=== PATIENT | female | born 1960 | race Caucasian/White ===

== ENCOUNTER → 2016-09-10 | Outpatient (CLI) | payer OTHER ==
[~2016-09-10] MED LIST: ATOR20TA15 PO; ATOR40TA16 PO; BENA25TA3 PO; FOSA70TA PO; MOTR200T4 PO; MULTTAB67 PO; PHEN1LIQ60; VENTAER INH; ZITHTAB PO; ZOFR4TAB PO
[2016-09-10 08:58] LABS: AUTOMATED NEUTROPHIL # 2.8 TH/MM3 (1.8-7.7); BASOPHIL # 0.1 TH/MM3 (0-0.2); BASOPHIL % 1.2 % (0.0-2.0); EOSINOPHIL # 0.2 TH/MM3 (0-0.4); EOSINOPHIL % 3.9 % (0.0-4.0); HEMATOCRIT 42.2 % (35.0-46.0); HEMO FLAGS DIFF FINAL; LYMPH % 33.6 % (9.0-44.0); LYMPHOCYTE # 1.8 TH/MM3 (1.0-4.8); MEAN CELL VOLUME 92.3 FL (80.0-100.0); MEAN CORPUSCULAR HGB CONC 32.5 % (32.0-36.0); MONO % 6.7 % (0.0-8.0); NEUT % 54.6 % (16.0-70.0); PLATELET COUNT 260 TH/MM3 (150-450); RED BLOOD COUNT 4.57 MIL/MM3 (4.00-5.30); RED CELL DISTRIBUTION WIDTH 11.9 % (11.6-17.2); WHITE BLOOD COUNT 5.3 TH/MM3 (4.0-11.0)
[2016-09-10 13:45] LABS: BLOOD, URINE NEG (NEG); GLUCOSE,URINE NEG (NEG); KETONE, URINE NEG (NEG); NITRITE,URINE NEG (NEG); SQUAMOUS EPITHELIAL CELL URINE <1 /hpf (0-5); URINE COLOR COLORLESS (YELLW/STRAW)
[2016-09-10 13:48] LABS: COMMENT (UR) CULT NOT INDICATED; CULTURE IF INDICATED CULT NOT INDICATED
[2016-09-10 14:02] LABS: ALKALINE PHOSPHATASE 85 U/L (45-117); ALT (GPT) 17 U/L (10-53); ANION GAP 7 MEQ/L (5-15); AST (GOT) 12 U/L (15-37); BICARBONATE 28.7 MEQ/L (21.0-32.0); BLOOD UREA NITROGEN 21 MG/DL (7-18); CHLORIDE 104 MEQ/L (98-107); FREE T4 0.98 NG/DL (0.76-1.46); GLOMERULAR FILTRATION RATE 82 ML/MIN (>89); GLUCOSE,FASTING 99 MG/DL (74-99); HDL CHOLESTEROL 61.4 MG/DL (40.0-60.0); LDL CHOLESTEROL 191 MG/DL (0-99); SODIUM (NA) 140 MEQ/L (136-145); TOTAL BILIRUBIN ADULT 0.3 MG/DL (0.2-1.0)
[2016-09-10 17:27] LABS: HEMOGLOBIN A1a 1.1 %; HEMOGLOBIN A1b 0.8 %; HEMOGLOBIN Ao 84.7 %; HEMOGLOBIN F 1.1 %; HEMOGLOBIN P3 3.9 %
== END ==
LOC: OLAB 08:12
PROVIDERS: ATTEND Nurse Practitioner Family
DX: J40 Bronchitis, not specified as acute or chronic (principal); E78.5 Hyperlipidemia, unspecified; E55.9 Vitamin D deficiency, unspecified; R11.0 Nausea; R53.83 Other fatigue
CPT/HCPCS: 80053; 80061; 81001; 82306; 83036; 84439; 84443; 84480; 85025

== ENCOUNTER → 2016-10-15 | Outpatient (CLI) | payer OTHER ==
[~2016-10-15] VITALS: Ht 158.8 cm; Wt 61.7 kg
[~2016-10-15] MED LIST changes: -ATOR40TA16 PO; +CHLORHEXIDINE GLUCONATE 2 % 1 PACK (2 CLOTHS) TOPICAL PRN; +INSULIN HUMAN REGULAR 1,000 UNITS/10 ML VIAL SQ PRN; +LACTATED RINGER'S 1000 ML IV PRN; +METOPROLOL TARTRATE 25 MG TAB PO PRN; -PHEN1LIQ60; +POVIDONE IODINE 5% (ANTISEPSIS KIT) 4 APPLICATIONS EACH NARE PRN; +PROPOFOL 200 MG/20 ML AMP IV ONE; +SODIUM CHLORID 0.9% 500 ML IV PRN; -ZITHTAB PO
[2016-10-15 13:38] VITALS: BP 106/60; PULSE 74; RESP 20; TEMP 98.4; O2SAT 96
--- NOTE | 2016-10-15 14:40 | EKG ---
Date Performed: 10/15/2016 Time Performed: 13:21:50 PTAGE: 55 years EKG: Sinus rhythm NONSPECIFIC T-WAVE ABNORMALITY BORDERLINE ECG PREVIOUS TRACING : 11/22/2013 08.58 Compared to prior tracing no significant change DOCTOR: Luis Jean Interpretating Date/Time 10/15/2016 14:39:04
[2016-10-15 14:43] VITALS: TEMP 97.5
--- NOTE | 2016-10-15 14:51 | GIPROC ---
[facility] [address] [facility]. [facility], [address] EGD PROCEDURE REPORT EXAM DATE: 10/15/2016 PATIENT NAME: Sherine Carey MR #: [id number] BIRTHDATE: 1960 ATTENDING: Perez Donis MD ORDER #: [id number] PICTURE FRAMES INSPECTOR: Jalil Schaeffer Hogan, Darren, and Denisse Matthews STATUS: outpatient INDICATIONS: The patient is a 55 yr old female here for an EGD due to nausea and bloating PROCEDURE PERFORMED: EGD w/ biopsy MEDICATIONS: None and Per Anesthesia. TOPICAL ANESTHETIC: none CONSENT: The patient understands the risks and benefits of the procedure and understands that these risks include, but are not limited to: sedation, allergic reaction, infection, perforation and/or bleeding. Alternative means of evaluation and treatment include, among others: physical exam, x-rays, and/or surgical intervention. The patient elects to proceed with this endoscopic procedure. medical equipment was checked for proper function. Hand hygiene and appropriate measures for infection prevention was taken. After the risks, benefits and alternatives of the procedure were thoroughly explained, Informed consent was verified, confirmed and timeout was successfully executed by the treatment team. The patient was anesthetized with topical anesthesia and the Pentax [id number] endoscope was introduced through the mouth and advanced to the third portion of the duodenum. Retroflexed views revealed gastritis The gastroscope was then slowly withdrawn and removed. ESOPHAGUS: There was LA Class A esophagitis noted. Multiple biopsies were performed. The esophagus was otherwise normal. Moderate amount of bile in stomach and paucity of gastric contractions noted. STOMACH: There was mild erosive gastritis in the entire examined stomach. Multiple biopsies were performed. DUODENUM: Mild duodenal inflammation was found in the duodenal bulb. ADVERSE EVENTS: There were no complications. IMPRESSIONS: 1. There was LA Class A esophagitis noted; multiple biopsies were performed 2. The esophagus was otherwise normal 3. Moderate amount of bile in stomach and paucity of gastric contractions noted 4. There was mild gastritis in the entire examined stomach; multiple biopsies were performed 5. Duodenal inflammation was found in the duodenal bulb 6. Retroflexed views revealed gastritis RECOMMENDATIONS: 1. Await biopsy results. Biopsy results will not be ready for 7-10 days. If you don't hear from us in two weeks, call our office for biopsy results. 2. Avoid NSAIDS PATIENT CONDITION: stable DISPOSITION: Home REPEAT EXAM: NONE Perez Donis MD eSigned: Perez Donis MD 10/15/2016 2:50 PM cc: [facility] PATIENT NAME: Sherine Carey MR#: [id number]
--- NOTE | 2016-10-15 15:00 | GIPROC ---
[facility] [address] [facility]. [facility], [address] COLONOSCOPY PROCEDURE REPORT EXAM DATE: 10/15/2016 PATIENT NAME: Sherine Carey MR #: [id number] BIRTHDATE: 1960 ENDOSCOPIST: Perez Donis MD ORDER #: [id number] ADJUNCT NURSING FACULTY: Jalil Schaeffer Hogan, Darren, and Denisse Matthews STATUS: outpatient INDICATIONS: The patient is a 55 yr old female here for a colonoscopy due to bloating and patient's family history of colon polyps PROCEDURE PERFORMED: Colonoscopy with biopsy MEDICATIONS: None and Per Anesthesia. PREP QUALITY: excellent PREP TYPE:Other: PREP TYPE:Other: [place] ESTIMATED BLOOD LOSS: None CONSENT: The patient understands the risks and benefits of the procedure and understands that these risks include, but are not limited to: sedation, allergic reaction, infection, perforation and/or bleeding. Alternative means of evaluation and treatment include, among others: physical exam, x-rays, and/or surgical intervention. The patient elects to proceed with this endoscopic procedure. medical equipment was checked for proper function. Hand hygiene and appropriate measures for infection prevention was taken. After the risks, benefits and alternatives of the procedure were thoroughly explained, Informed consent was verified, confirmed and timeout was successfully executed by the treatment team. A digital exam revealed no abnormalities of the rectum The Pentax [id number] endoscope was introduced through the anus and advanced to the terminal ileum which was intubated for a short distance. The instrument was then slowly withdrawn as the colon was fully examined. COLON FINDINGS: Normal TI. A polypoid shaped sessile polyp measuring 3 mm in size was found in the transverse colon. A polypectomy was performed with cold forceps. The resection was complete and the polyp tissue was completely retrieved. Moderate diverticulosis was noted in the transverse colon and sigmoid colon. The colon mucosa was otherwise normal. Retroflexion was not performed. The scope was then completely withdrawn from the patient and the procedure terminated. PROCEDURE WITHDRAWAL TIME:11minutes ADVERSE EVENTS: There were no complications. IMPRESSIONS: 1. Normal TI 2. A sessile polyp measuring 3 mm in size was found in the transverse colon; polypectomy was performed with cold forceps 3. Moderate diverticulosis was noted in the transverse colon and sigmoid colon 4. The colon mucosa was otherwise normal 5. Revealed no abnormalities of the rectum RECOMMENDATIONS: Await biopsy results. Biopsy results will not be ready for 7-10 days. If you don't hear from us in two weeks, call our office for results. RECALL: Return 5 years Colonoscopy Perez Donis MD eSigned: Perez Donis MD 10/15/2016 3:00 PM cc: [facility] PATIENT NAME: Sherine Carey MR#: [id number]
[2016-10-15 15:05] VITALS: BP 123/64; PULSE 63; RESP 18; O2SAT 97
== END ==
LOC: HEND 12:45
PROVIDERS: ATTEND Internal Medicine Gastroenterology
DX: R14.0 Abdominal distension (gaseous) (principal); D12.3 Benign neoplasm of transverse colon; K57.90 Diverticulosis of intestine, part unspecified, without perforation or abscess without bleeding; R11.0 Nausea; K20.9 Esophagitis, unspecified; K29.70 Gastritis, unspecified, without bleeding; R94.31 Abnormal electrocardiogram [ECG] [EKG]
CPT/HCPCS: 88305; 88307; 88312; 93005